=== PATIENT | male | born 1965 | race African-American/Black ===

== ENCOUNTER 2019-11-15 14:24 | Inpatient (IN) | payer MEDICARE, MEDICAID ==
[~2019-11-15 14:24] MED LIST: ALBU8HFA IH; AMLO10TA7 PO; ASPI81TA87 PO; DIVA500T69 PO; OLAN10TA3 PO; TIOT185 IH
[2019-11-15] MEDS ORDERED: ZOLPIDEM TARTRATE 10 MG TABLET PO PRN (19:30)
[2019-11-15] MEDS ORDERED: LORazepam 2 MG TABLET PO PRN (19:30)
[2019-11-15] MEDS ORDERED: HALOPERIDOL 5 MG TABLET PO PRN (19:30)
[2019-11-15 20:08] VITALS: BP 141/78
[2019-11-15] MEDS ORDERED: PNEUMOCOCCAL VACCINE POLYVALENT 0.5 ML VIAL [PPSV23] IM ONE (20:30)
[2019-11-15 20:37] LABS: GLUCOMETER DEV NAME(LOC) BV2X.; GLUCOSE,POINT OF CARE 120 MG/DL (70-110)
[2019-11-15] MEDS: AmLODIPine BESYLATE 10 MG TABLET PO SCH (21:51)
[2019-11-15] MEDS ORDERED: HALOPERIDOL LACTATE 5 MG/ML VIAL IM ONE ×2 (22:30)
[2019-11-15] MEDS ORDERED: DiphenhydrAMINE HCL 50 MG/ML VIAL IM ONE ×2 (22:30)
[2019-11-15] MEDS ORDERED: LORazepam 2 MG/ML VIAL IM ONE ×2 (22:30)
[2019-11-16 06:14] VITALS: BP 134/67
[2019-11-16 06:33] LABS: GLUCOMETER DEV NAME(LOC) BV2X.; GLUCOSE,POINT OF CARE 101 MG/DL (70-110)
[2019-11-16] MEDS: AmLODIPine BESYLATE 10 MG TABLET PO SCH (08:04)
[2019-11-16] MEDS: ASPIRIN 81 MG CHEWABLE TABLET PO SCH (08:05)
[2019-11-16] MEDS: TIOTROPIUM BROMIDE 18 MCG/INH HANDIHALER [5] IH SCH (08:05)
[2019-11-16 08:20] LABS: BASOPHILS % (AUTO) 0.6 % (0.0-2.0); EOSINOPHILS % (AUTO) 4.8 % (1.0-6.0); HEMATOCRIT 33.1 % (41-53); HEMOGLOBIN 10.6 g/dL (13.5-17.5); LYMPHOCYTES % (AUTO) 13.7 % (22.0-44.0); MEAN CORPUSCULAR HEMOGLOBIN 22.6 pg (26.0-34.0); MEAN CORPUSCULAR HGB CONC 32.1 G/dL (31.0-37.0); MEAN CORPUSCULAR VOLUME 70 fL (80-100); MONOCYTES # (AUTO) 0.8 K/uL (0.1-1.0); MONOCYTES % (AUTO) 10.5 % (2.0-9.0); NEUTROPHILS # (AUTO) 5.1 K/uL (1.8-7.7); NEUTROPHILS % (AUTO) 70.4 % (40.0-70.0); PLATELET COUNT (AUTO) 193 K/uL (150-450); RED CELL DISTRIBUTION WIDTH 17.7 % (11.5-14.5)
[2019-11-16 08:40] LABS: HEMOGLOBIN A1C 6.1 % (3.8-5.6)
[2019-11-16 09:00] LABS: ALANINE AMINOTRANSFERASE 21 U/L (12-78); ALBUMIN 2.9 g/dL (3.4-5.0); ALKALINE PHOSPHATASE 60 U/L (46-116); ANION GAP 6 mmol/L (8-16); ASPARTATE AMINOTRANSFERASE 13 U/L (15-37); BILIRUBIN,TOTAL 0.3 mg/dL (0.1-1.0); CALCIUM, TOTAL 8.8 mg/dL (8.8-10.5); CARBON DIOXIDE 30 mmol/L (22-29); CHLORIDE 105 mmol/L (98-107); CHOL/HDL RATIO 4.3 (4.2-7.3); CHOLESTEROL 164 mg/dL (131-200); GLOMERULAR FILTR. RATE CALC > 60 mL/min (>60); GLUCOSE,RANDOM 92 mg/dL (70-110); HDL CHOLESTEROL 38 mg/dL (40-60); LDL CHOL (CALC.) 108 mg/dL (0-130); POTASSIUM 4.6 mmol/L (3.5-5.1); SODIUM SERUM 141 mmol/L (136-145); THYROID STIMULATING HORMONE 0.56 uIU/mL (0.36-3.74); TOTAL PROTEIN, SERUM 7.2 g/dL (6.4-8.2); TRIGLYCERIDES 91 mg/dL (15-150); UREA NITROGEN, BLOOD 18 mg/dL (7-18)
[2019-11-16 12:41] VITALS: BP 139/81
[2019-11-16] MEDS ORDERED: ALBUTEROL SULFATE HFA 90 MCG/PUFF 8 GM INHALER IH PRN (13:00)
[2019-11-16] MEDS ORDERED: BACITRACIN 28.4 GM OINTMENT TP PRN (13:00)
[2019-11-16] MEDS ORDERED: PETROLATUM,WHITE 28 GM JELLY TP PRN (13:00)
[2019-11-16] MEDS ORDERED: MAGNESIUM HYDROXIDE SUSPENSION 30 ML UDCUP PO PRN (13:00)
[2019-11-16] MEDS ORDERED: BENZOCAINE/MENTHOL LOZENGE MM PRN (13:00)
[2019-11-16] MEDS ORDERED: ONDANSETRON HCL 4 MG TABLET PO PRN (13:00)
[2019-11-16] MEDS ORDERED: LOPERAMIDE HCL 2 MG CAPSULE PO PRN (13:00)
[2019-11-16] MEDS ORDERED: CloNIDine HCL 0.1 MG TABLET PO PRN (13:00)
[2019-11-16] MEDS ORDERED: MAG HYDROX/AL HYDROX/SIMETH ES 30 ML SUSPENSION UDCUP PO PRN (13:00)
[2019-11-16] MEDS ORDERED: ACETAMINOPHEN 325 MG TABLET PO PRN (13:00)
[2019-11-16] MEDS ORDERED: DOCUSATE SODIUM 100 MG CAPSULE PO PRN (13:00)
[2019-11-16] MEDS ORDERED: IBUPROFEN 600 MG TABLET PO PRN (13:00)
[2019-11-16] MEDS ORDERED: OMEPRAZOLE 20 MG CAPSULE PO PRN (13:00)
[2019-11-16 16:02] VITALS: BP 144/88
[2019-11-16] MEDS: DIVALPROEX SODIUM 500 MG DR TABLET PO SCH (16:35)
[2019-11-16] MEDS: BACITRACIN 28.4 GM OINTMENT TP SCH (19:59)
[2019-11-17 02:11] VITALS: BP 144/66
[2019-11-17 08:04] VITALS: BP 141/93
[2019-11-17] MEDS: CITALOPRAM HYDROBROMIDE 20 MG TABLET PO SCH (08:16)
[2019-11-17] MEDS: DIVALPROEX SODIUM 500 MG DR TABLET PO SCH ×2 (08:16→16:24)
[2019-11-17] MEDS: OLANZapine 10 MG TABLET PO SCH (08:16)
[2019-11-17] MEDS: ASPIRIN 81 MG CHEWABLE TABLET PO SCH (08:16)
[2019-11-17] MEDS: AmLODIPine BESYLATE 10 MG TABLET PO SCH (08:16)
[2019-11-17] MEDS: TIOTROPIUM BROMIDE 18 MCG/INH HANDIHALER [5] IH SCH (08:17)
[2019-11-17] MEDS: BACITRACIN 28.4 GM OINTMENT TP SCH ×2 (08:28→16:55)
[2019-11-17 16:02] VITALS: BP 145/79
[2019-11-18 07:11] VITALS: BP 143/79
[2019-11-18] MEDS: DIVALPROEX SODIUM 500 MG DR TABLET PO SCH ×2 (08:03→16:30)
[2019-11-18] MEDS: ASPIRIN 81 MG CHEWABLE TABLET PO SCH (08:03)
[2019-11-18] MEDS: CITALOPRAM HYDROBROMIDE 20 MG TABLET PO SCH (08:03)
[2019-11-18] MEDS: OLANZapine 10 MG TABLET PO SCH (08:03)
[2019-11-18] MEDS: MULTIVITAMINS WITH IRON TABLET PO SCH (08:04)
[2019-11-18] MEDS: BACITRACIN 28.4 GM OINTMENT TP SCH ×2 (08:04→16:30)
[2019-11-18] MEDS: AmLODIPine BESYLATE 10 MG TABLET PO SCH (08:04)
[2019-11-18 08:26] VITALS: BP 136/70
[2019-11-18] MEDS: TIOTROPIUM BROMIDE 18 MCG/INH HANDIHALER [5] IH SCH (08:37)
[2019-11-18 16:02] VITALS: BP 128/71
[2019-11-19 03:49] VITALS: BP 131/67
[2019-11-19] MEDS: OLANZapine 10 MG TABLET PO SCH (09:27)
[2019-11-19] MEDS: CITALOPRAM HYDROBROMIDE 20 MG TABLET PO SCH (09:27)
[2019-11-19] MEDS: ASPIRIN 81 MG CHEWABLE TABLET PO SCH (09:27)
[2019-11-19] MEDS: DIVALPROEX SODIUM 500 MG DR TABLET PO SCH ×2 (09:27→16:44)
[2019-11-19] MEDS: AmLODIPine BESYLATE 10 MG TABLET PO SCH (09:27)
[2019-11-19] MEDS: BACITRACIN 28.4 GM OINTMENT TP SCH ×2 (09:27→16:49)
[2019-11-19] MEDS: MULTIVITAMINS WITH IRON TABLET PO SCH (09:27)
[2019-11-19] MEDS: TIOTROPIUM BROMIDE 18 MCG/INH HANDIHALER [5] IH SCH (09:38)
[2019-11-19 10:43] VITALS: BP 136/76
[2019-11-19 19:06] VITALS: BP 135/76
[2019-11-20 01:15] VITALS: BP 136/72
[2019-11-20 08:38] VITALS: BP 151/89
[2019-11-20] MEDS: TIOTROPIUM BROMIDE 18 MCG/INH HANDIHALER [5] IH SCH (08:59)
[2019-11-20] MEDS: MULTIVITAMINS WITH IRON TABLET PO SCH (08:59)
[2019-11-20] MEDS: AmLODIPine BESYLATE 10 MG TABLET PO SCH (08:59)
[2019-11-20] MEDS: OLANZapine 10 MG TABLET PO SCH (09:00)
[2019-11-20] MEDS: DIVALPROEX SODIUM 500 MG DR TABLET PO SCH ×2 (09:00→17:56)
[2019-11-20] MEDS: CITALOPRAM HYDROBROMIDE 20 MG TABLET PO SCH (09:00)
[2019-11-20] MEDS: ASPIRIN 81 MG CHEWABLE TABLET PO SCH (09:00)
[2019-11-20 16:38] VITALS: BP 127/67
[2019-11-21 05:25] VITALS: BP 128/72
[2019-11-21] MEDS: TIOTROPIUM BROMIDE 18 MCG/INH HANDIHALER [5] IH SCH (08:19)
[2019-11-21] MEDS: MULTIVITAMINS WITH IRON TABLET PO SCH (08:19)
[2019-11-21] MEDS: AmLODIPine BESYLATE 10 MG TABLET PO SCH (08:19)
[2019-11-21] MEDS: CITALOPRAM HYDROBROMIDE 20 MG TABLET PO SCH (08:19)
[2019-11-21] MEDS: OLANZapine 10 MG TABLET PO SCH (08:19)
[2019-11-21] MEDS: DIVALPROEX SODIUM 500 MG DR TABLET PO SCH ×2 (08:20→16:33)
[2019-11-21] MEDS: ASPIRIN 81 MG CHEWABLE TABLET PO SCH (08:20)
[2019-11-21 08:50] VITALS: BP 151/65
[2019-11-21 16:08] VITALS: BP 136/74
[2019-11-22 00:13] VITALS: BP 130/79
[2019-11-22 08:29] LABS: BAND NEUTROPHILS % (MANUAL) 0 % (0-5)
[2019-11-22 08:31] LABS: HEMATOCRIT 36.1 % (41-53); HEMOGLOBIN 11.6 g/dL (13.5-17.5); MEAN CORPUSCULAR HEMOGLOBIN 22.6 pg (26.0-34.0); MEAN CORPUSCULAR VOLUME 71 fL (80-100); PLATELET COUNT (AUTO) 194 K/uL (150-450); RED BLOOD CELL COUNT(AUTO) 5.12 MIL/uL (4.50-5.90); RED CELL DISTRIBUTION WIDTH 17.5 % (11.5-14.5)
[2019-11-22 08:48] VITALS: BP 129/68
[2019-11-22] MEDS: AmLODIPine BESYLATE 10 MG TABLET PO SCH (08:53)
[2019-11-22] MEDS: MULTIVITAMINS WITH IRON TABLET PO SCH (08:53)
[2019-11-22] MEDS: CITALOPRAM HYDROBROMIDE 20 MG TABLET PO SCH (08:53)
[2019-11-22] MEDS: ASPIRIN 81 MG CHEWABLE TABLET PO SCH (08:53)
[2019-11-22] MEDS: OLANZapine 10 MG TABLET PO SCH (08:53)
[2019-11-22] MEDS: DIVALPROEX SODIUM 500 MG DR TABLET PO SCH ×3 (08:53→16:15)
[2019-11-22] MEDS: TIOTROPIUM BROMIDE 18 MCG/INH HANDIHALER [5] IH SCH (08:55)
[2019-11-22 09:19] LABS: ANION GAP 4 mmol/L (8-16); CALCIUM, TOTAL 9.4 mg/dL (8.8-10.5); CARBON DIOXIDE 32 mmol/L (22-29); CHLORIDE 101 mmol/L (98-107); CREATININE 0.99 mg/dL (0.60-1.30); GLOMERULAR FILTR. RATE CALC > 60 mL/min (>60); GLUCOSE,RANDOM 79 mg/dL (70-110); PHOSPHORUS 4.3 mg/dL (2.5-4.9); POTASSIUM 5.1 mmol/L (3.5-5.1); SODIUM SERUM 137 mmol/L (136-145); UREA NITROGEN, BLOOD 26 mg/dL (7-18)
[2019-11-22 09:52] LABS: EOSINOPHILS % (MANUAL) 3 % (1-6); LYMPHOCYTES % (MANUAL) 36 % (22-44); MONOCYTES % (MANUAL) 3 % (2-9); SEGMENTED NEUTROPHILS % 58 % (40-70)
[2019-11-22 16:26] VITALS: BP 127/64
[2019-11-23 00:38] VITALS: BP 130/70
[2019-11-23 08:08] VITALS: BP 141/60
[2019-11-23] MEDS: AmLODIPine BESYLATE 10 MG TABLET PO SCH (08:10)
[2019-11-23] MEDS: MULTIVITAMINS WITH IRON TABLET PO SCH (08:10)
[2019-11-23] MEDS: OLANZapine 10 MG TABLET PO SCH (08:10)
[2019-11-23] MEDS: DIVALPROEX SODIUM 500 MG DR TABLET PO SCH ×3 (08:10→16:12)
[2019-11-23] MEDS: TIOTROPIUM BROMIDE 18 MCG/INH HANDIHALER [5] IH SCH (08:11)
[2019-11-23] MEDS: CITALOPRAM HYDROBROMIDE 20 MG TABLET PO SCH (08:11)
[2019-11-23] MEDS: ASPIRIN 81 MG CHEWABLE TABLET PO SCH (08:11)
[2019-11-23 16:18] VITALS: BP 133/68
[2019-11-24 01:59] VITALS: BP 133/68
[2019-11-24] MEDS: DIVALPROEX SODIUM 500 MG DR TABLET PO SCH ×3 (08:27→16:14)
[2019-11-24] MEDS: OLANZapine 10 MG TABLET PO SCH (08:28)
[2019-11-24] MEDS: AmLODIPine BESYLATE 10 MG TABLET PO SCH (08:28)
[2019-11-24] MEDS: MULTIVITAMINS WITH IRON TABLET PO SCH (08:28)
[2019-11-24] MEDS: ASPIRIN 81 MG CHEWABLE TABLET PO SCH (08:28)
[2019-11-24] MEDS: CITALOPRAM HYDROBROMIDE 20 MG TABLET PO SCH (08:28)
[2019-11-24] MEDS: TIOTROPIUM BROMIDE 18 MCG/INH HANDIHALER [5] IH SCH (08:29)
[2019-11-24 08:42] VITALS: BP 131/89
[2019-11-24 16:54] VITALS: BP 144/76
[2019-11-25 03:22] VITALS: BP 121/77
[2019-11-25] MEDS: DIVALPROEX SODIUM 500 MG DR TABLET PO SCH ×3 (08:17→16:30)
[2019-11-25] MEDS: CITALOPRAM HYDROBROMIDE 20 MG TABLET PO SCH (08:17)
[2019-11-25] MEDS: OLANZapine 10 MG TABLET PO SCH (08:17)
[2019-11-25] MEDS: ASPIRIN 81 MG CHEWABLE TABLET PO SCH (08:17)
[2019-11-25] MEDS: MULTIVITAMINS WITH IRON TABLET PO SCH (08:17)
[2019-11-25] MEDS: AmLODIPine BESYLATE 10 MG TABLET PO SCH (08:17)
[2019-11-25] MEDS: TIOTROPIUM BROMIDE 18 MCG/INH HANDIHALER [5] IH SCH (08:17)
[2019-11-25 08:22] VITALS: BP 143/89
[2019-11-25 16:05] VITALS: BP 122/64
[2019-11-25] MEDS ORDERED: OLAN10TA3 PO (19:51)
[2019-11-25] MEDS ORDERED: DIVA-78 PO (19:51)
[2019-11-25] MEDS ORDERED: CITA-144 PO (19:51)
[2019-11-26 00:46] VITALS: BP 135/75
[2019-11-26 08:07] VITALS: BP 154/79
[2019-11-26] MEDS: ASPIRIN 81 MG CHEWABLE TABLET PO SCH (08:17)
[2019-11-26] MEDS: DIVALPROEX SODIUM 500 MG DR TABLET PO SCH (08:17)
[2019-11-26] MEDS: TIOTROPIUM BROMIDE 18 MCG/INH HANDIHALER [5] IH SCH (08:18)
[2019-11-26] MEDS: AmLODIPine BESYLATE 10 MG TABLET PO SCH (08:18)
[2019-11-26] MEDS: CITALOPRAM HYDROBROMIDE 20 MG TABLET PO SCH (08:18)
[2019-11-26] MEDS: MULTIVITAMINS WITH IRON TABLET PO SCH (08:18)
[2019-11-26] MEDS: OLANZapine 10 MG TABLET PO SCH (08:18)
== END 2019-11-26 09:55 | disposition home or self-care (01) | DRG 885 ==
LOC: B2X 19:24 → B2S 11-18 20:58
PROVIDERS: ADMIT Psychiatry & Neurology Psychiatry; ATTEND Psychiatry & Neurology Psychiatry
PROC: 3E0234Z Introduction of Serum, Toxoid and Vaccine into Muscle, Percutaneous Approach (ICD-10-PCS; principal; 2019-11-15)
DX: F20.0 Paranoid schizophrenia (principal); Z59.0 Homelessness; D63.8 Anemia in other chronic diseases classified elsewhere; I10 Essential (primary) hypertension; J44.9 Chronic obstructive pulmonary disease, unspecified; F10.10 Alcohol abuse, uncomplicated; Y90.9 Presence of alcohol in blood, level not specified; F17.200 Nicotine dependence, unspecified, uncomplicated; G47.00 Insomnia, unspecified; K59.00 Constipation, unspecified; F41.9 Anxiety disorder, unspecified; M19.90 Unspecified osteoarthritis, unspecified site; Z23 Encounter for immunization
CPT/HCPCS: 74176; 76999; 83036; 83735; 84100; 84443; 85007; 86592; 87081; 90732; J1200; J1630; J2060